=== PATIENT | female | born 1965 | race African-American/Black ===

== ENCOUNTER 2016-06-30 11:54 | Emergency (ER) | payer SELFPAY ==
[~2016-06-30] VITALS: Ht 157.5 cm; Wt 80.0 kg
[~2016-06-30 11:54] MED LIST: AMLO5 PO; FERR140T PO; PROT40TA PO
[2016-06-30 11:56] VITALS: BP 190/91; PULSE 88; RESP 16; TEMP 98; O2SAT 98
[2016-06-30 14:00] VITALS: BP 179/94
--- NOTE | 2016-06-30 14:02 | RADRPT ---
EXAM DATE/TIME: 06/30/2016 13:56 [facility] COMPARISON: CHEST SINGLE AP, November 17, 2015, 4:41. INDICATIONS : Patient woke up yesterday with pain on her left chest area near breast and radiated down left arm enoch ing it numb at times. MEDICAL HISTORY : None. SURGICAL HISTORY : None. ENCOUNTER: Initial ACUITY: 2 days PAIN SCORE: 10/10 LOCATION: Left chest FINDINGS: A single view of the chest demonstrates the lungs to be symmetrically aerated without evidence of mas s, infiltrate or effusion. The cardiomediastinal contours are unremarkable. Osseous structures are intact. CONCLUSION: No acute cardiopulmonary process. Luke Montemayor MD on June 30, 2016 at 13:59 Board Certified Radiologist. This report was verified electronically.
--- NOTE | 2016-06-30 15:29 | PD ---
HPI Chief Complaint: Chest Pain Time Seen by Provider: 15:28 Travel History International Travel<30 days: No Contact w/Intl Traveler<30days: No Traveled to known affect area: No History of Present Illness HPI 51-year-old female came to the emergency room with history of chest pain, left- sided neck pain and neck stiffness. Patient says this has been going on since yesterday but this morning was really worse where she was unable to move her neck. However the pain did radiate down to her chest as well. She is not sure which started first but she definitely is worried about her chest pain as well. Patient was quite hypertensive in triage. She says she has history of hypertension but takes natural stuff to keep her blood pressure down. She also smokes cigarettes and says she has cut down to one pack per day. No history of shortness of breath, fever, cough. Patient had a stress test done 4-5 years ago. There is family history of coronary artery disease in both sides of her family. PFS Past Medical History Narrative Medical List of her past medical, surgical, social and family history was reviewed from the nursing note. Anemia: Yes (WITH BLOOD TRANSFUSION) Asthma: Yes (As a kid.) Blood Disorders: No Anxiety: No Depression: Yes Heart Rhythm Problems: No Cancer: No Cardiac Catheterization: No Cardiovascular Problems: Yes (HTN) High Cholesterol: No Chemotherapy: No Chest Pain: No Congestive Heart Failure: No COPD: No Diabetes: No Diminished Hearing: No Endocrine: No Gastrointestinal Disorders: Yes GERD: Yes Genitourinary: Yes Hypertension: Yes Immune Disorder: No Implanted Vascular Access Dvce: No Kidney Stones: Yes (Took meds.) Neurologic: Yes Psychiatric: Yes Respiratory: Yes Migraines: Yes (As a kid.) Radiation Therapy: No Sleep Apnea: No Thyroid Disease: No ?: Not : 2 Para: 2 Miscarriage: 0 : 0 Tubal Ligation: Yes Past Surgical History Abdominal Surgery: Yes (tubal ligation) Cardiac Surgery: No Cholecystectomy: Yes Coronary Artery Bypass Graft: No Ear Surgery: No Endocrine Surgery: No Eye Surgery: No Genitourinary Surgery: No Gynecologic Surgery: Yes Oral Surgery: No Thoracic Surgery: No Other Surgery: Yes (tubal and gallstones in the 1980s) Family History Narrative Family History Both maternal and paternal side. Family Myocardial Infarction: Yes Social History Alcohol Use: Yes (SELDOM) Tobacco Use: Yes (5 CIG PER DAY) Substance Use: No Allergies-Medications (Allergen,Severity, Reaction): Coded Allergies: Lisinopril (Verified Allergy, Unknown, SWELLING, 06/30/16) Comments List of her allergies reviewed from the nursing note. Reported Meds & Prescriptions Reported Meds & Active Scripts Active Atenolol 25 Mg Tab 12.5 Mg PO BID Narrative Medication List of her home medications reviewed from the nursing note. Review of Systems Except as stated in HPI: all other systems reviewed are Neg Physical Exam Narrative GENERAL: Awake, alert, moderate distress SKIN: Warm and dry. HEAD: Atraumatic. Normocephalic. EYES: Pupils equal and round. No scleral icterus. No injection or drainage. ENT: No nasal bleeding or discharge. Mucous membranes pink and moist. NECK: Trachea midline. No JVD. CARDIOVASCULAR: Regular rate and rhythm. No murmur appreciated. RESPIRATORY: No accessory muscle use. Clear to auscultation. Breath sounds equal bilaterally. GASTROINTESTINAL: Abdomen soft, non-tender, nondistended. Hepatic and splenic margins not palpable. MUSCULOSKELETAL: No obvious deformities. No clubbing. No cyanosis. No edema. Left paraspinal spasm and torticollis. NEUROLOGICAL: Awake and alert. No obvious cranial nerve deficits. Motor grossly within normal limits. Normal speech. PSYCHIATRIC: Appropriate mood and affect; insight and judgment normal. Data Data Last Documented VS Orders Electrocardiogram (06/30/16 13:00) Complete Blood Count With Diff (06/30/16 13:00) Basic Metabolic Panel (Bmp) (06/30/16 13:00) Ckmb (Isoenzyme) Profile (06/30/16 13:00) Troponin I (06/30/16 13:00) Chest, Single Ap (06/30/16 13:00) Ct Cerv Spine W/O Contrast (06/30/16 ) Morphine Inj (Morphine Inj) (06/30/16 16:00) Ketorolac Inj (Toradol Inj) (06/30/16 16:00) Lorazepam Inj (Ativan Inj) (06/30/16 16:00) CKMB (06/30/16 15:45) CKMB% (06/30/16 15:45) Potassium Chloride Eff (K-Lyte Cl Eff) (06/30/16 17:30) Labs [facility] Medical Decision Making Medical Screen Exam Complete: Yes Emergency Medical Condition: Yes Medical Record Reviewed: Yes Interpretation(s) Twelve-lead EKG was reviewed by me. Differential Diagnosis Cervical radiculopathy, ACS Narrative Course 5:38 PM patient was given pain medication and muscle relaxant. A scan of her cervical spine was read as spondylolysis. Blood test results of back and potassium is low. I have ordered replacement. I went back to reassess her and patient says that her neck feels much better but her chest pain is still there and she knows that something is wrong. Patient does have significant risk factor. Given that her physical findings were pronounced for cervical radiculopathy given her risk factor of uncontrolled hypertension, prolonged nicotine abuse history and family history and her age I'm concerned about ACS. I would like to admit this patient to the chest pain center to be ruled out. I mentioned that to the patient. However patient wants to go home because she has to go to work tomorrow. She understands the risks of leaving including a massive heart attack. Patient understands this risk. She is in full capacity to make decisions for herself. She promises that she will follow up with her primary care and quit smoking. She will sign out AGAINST MEDICAL ADVICE however. Procedures EKG Prior to Arrival: Yes Diagnosis Primary Impression: Chest wall pain Additional Impression: Torticollis Scripts Atenolol 25 Mg Tab12.5 Mg PO BID #60 TAB Ref 0 Prov:Josefa Kelly MD 06/30/16 Disposition: 07 AGAINST MEDICAL ADVICE Josefa Kelly MD Jun 30, 2016 15:29 Monocytes (%) (Auto) 8.0 % Eosinophils (%) (Auto) 0.9 % Basophils (%) (Auto) 0.8 % Neutrophils # (Auto) 6.7 TH/MM3 Lymphocytes # (Auto) 1.8 TH/MM3 Monocytes # (Auto) 0.8 TH/MM3 Eosinophils # (Auto) 0.1 TH/MM3 Basophils # (Auto) 0.1 TH/MM3 CBC Comment AUTO DIFF Differential Comment AUTO DIFF CONFIRMED Platelet Estimate HIGH Platelet Morphology Comment NORMAL Tear Drop Cells 1+ Ovalocytes 1+ Keratocytes OCC Sodium Level 140 MEQ/L Potassium Level 3.1 MEQ/L Chloride Level 106 MEQ/L Carbon Dioxide Level 25.9 MEQ/L Anion Gap 8 MEQ/L Blood Urea Nitrogen 9 MG/DL Creatinine 0.71 MG/DL Estimat Glomerular Filtration 105 ML/MIN Rate Random Glucose 149 MG/DL Calcium Level 9.0 MG/DL Total Creatine Kinase 113 U/L Creatine Kinase MB LESS THAN 0.5 NG/ML Troponin I LESS THAN 0.02 NG/ML MDM Medical Decision Making Medical Screen Exam Complete: Yes Emergency Medical Condition: Yes Medical Record Reviewed: Yes Interpretation(s) Twelve-lead EKG was reviewed by me. Differential Diagnosis Cervical radiculopathy, ACS Narrative Course 5:38 PM patient was given pain medication and muscle relaxant. A scan of her cervical spine was read as spondylolysis. Blood test results of back and potassium is low. I have ordered replacement. I went back to reassess her and patient says that her neck feels much better but her chest pain is still there and she knows that something is wrong. Patient does have significant risk factor. Given that her physical findings were pronounced for cervical radiculopathy given her risk factor of uncontrolled hypertension, prolonged nicotine abuse history and family history and her age I'm concerned about ACS. I would like to admit this patient to the chest pain center to be ruled out. I mentioned that to the patient. However patient wants to go home because she has to go to work tomorrow. She understands the risks of leaving including a massive heart attack. Patient understands this risk. She is in full capacity to make decisions for herself. She promises that she will follow up with her primary care and quit smoking. She will sign out AGAINST MEDICAL ADVICE however. Procedures EKG Prior to Arrival: Yes Diagnosis Primary Impression: Chest wall pain Additional Impression: Torticollis Scripts Atenolol 25 Mg Tab12.5 Mg PO BID #60 TAB Ref 0 Prov:Josefa Kelly MD 06/30/16 Disposition: 07 AGAINST MEDICAL ADVICE Josefa Kelly MD Jun 30, 2016 15:29
[2016-06-30 15:30] VITALS: BP 178/83; PULSE 78; RESP 16; O2SAT 98
[2016-06-30 15:57] LABS: AUTOMATED NEUTROPHIL # 6.7 TH/MM3 (1.8-7.7); BASOPHIL # 0.1 TH/MM3 (0-0.2); BASOPHIL % 0.8 % (0.0-2.0); EOSINOPHIL # 0.1 TH/MM3 (0-0.4); EOSINOPHIL % 0.9 % (0.0-4.0); HEMATOCRIT 26.4 % (35.0-46.0); LYMPH % 19.5 % (9.0-44.0); LYMPHOCYTE # 1.8 TH/MM3 (1.0-4.8); MEAN CELL VOLUME 68.5 FL (80.0-100.0); MEAN CORPUSCULAR HGB CONC 30.6 % (32.0-36.0); NEUT % 70.8 % (16.0-70.0); PLATELET COUNT 446 TH/MM3 (150-450); RED BLOOD COUNT 3.85 MIL/MM3 (4.00-5.30); RED CELL DISTRIBUTION WIDTH 18.4 % (11.6-17.2); WHITE BLOOD COUNT 9.5 TH/MM3 (4.0-11.0)
[2016-06-30] MEDS ORDERED: KETOROLAC TROMETHAMINE 30 MG/ML (IVP) VIAL IV PUSH ONE (16:00)
[2016-06-30] MEDS ORDERED: LORazepam 2 MG/ML VIAL IV PUSH ONE (16:00)
[2016-06-30] MEDS ORDERED: MORPHINE SULFATE 4 MG/ML INJ IV PUSH ONE (16:00)
[2016-06-30 16:06] LABS: HEMO FLAGS AUTO DIFF
[2016-06-30 16:18] LABS: ANION GAP 8 MEQ/L (5-15); BICARBONATE 25.9 MEQ/L (21.0-32.0); BLOOD UREA NITROGEN 9 MG/DL (7-18); CHLORIDE 106 MEQ/L (98-107); GLOMERULAR FILTRATION RATE 105 ML/MIN (>89); POTASSIUM 3.1 MEQ/L (3.5-5.1); SODIUM (NA) 140 MEQ/L (136-145)
[2016-06-30 16:22] LABS: CREATINE KINASE 113 U/L (26-192)
[2016-06-30 16:34] LABS: CKMB LESS THAN 0.5 NG/ML (0.5-3.6)
--- NOTE | 2016-06-30 17:02 | RADRPT ---
EXAM DATE/TIME: 06/30/2016 16:01 [facility] COMPARISON: No previous studies available for comparison. INDICATIONS : Left-sided arm and neck pain. RADIATION DOSE: 19.97 CTDIvol (mGy) MEDICAL HISTORY : Hypertension. SURGICAL HISTORY : Tubal ligation. ENCOUNTER: Initial ACUITY: 2 days PAIN SCALE: 7/10 LOCATION: Left neck TECHNIQUE: Volumetric scanning of the cervical spine was performed. Multiplanar reconstructions in the sagittal, coronal and oblique axial planes were performed. Using automated exposure control and adjustment o f the mA and/or kV according to patient size, radiation dose was kept as low as reasonably achievable to obtain optimal diagnostic quality images. FINDINGS: Mild cervical spondylosis is noted at C4-5 and C5-6. There is no acute compression fracture or prever tebral soft tissue swelling. No bony spinal canal stenosis is noted. The bony relationship and alignm ent between C1 and C2 is well-maintained. Scattered apical bullous changes are noted. C2-C3: The bony spinal canal is normal in size. No evidence of disc bulge or herniation. The neural forami na are bilaterally patent. C3-C4: The bony spinal canal is normal in size. No evidence of disc bulge or herniation. The neural forami na are bilaterally patent. C4-C5: The bony spinal canal is normal in size. No evidence of disc bulge or herniation. The neural forami na are bilaterally patent. C5-C6: The bony spinal canal is normal in size. No evidence of disc bulge or herniation. The neural forami na are bilaterally patent. C6-C7: The bony spinal canal is normal in size. No evidence of disc bulge or herniation. The neural forami na are bilaterally patent. C7-T1: The bony spinal canal is normal in size. No evidence of disc bulge or herniation. The neural forami na are bilaterally patent. CONCLUSION: 1. No acute fracture or prevertebral soft tissue swelling. 2. Mild cervical spondylosis at C4-5 and C5-6. 3. Scattered apical bullous changes. Maurisio Drummond MD on June 30, 2016 at 16:57 Board Certified Radiologist. This report was verified electronically.
[2016-06-30 17:11] LABS: KERATOCYTES OCC (NORMAL); OVALOCYTES 1+ (NORMAL); PLATELET ESTIMATE SMEAR HIGH (NORMAL); PLATELET MORPHOLOGY NORMAL (NORMAL); SCAN/DIFF AUTO DIFF CONFIRMED; TEARDROP RBCS 1+ (NORMAL)
[2016-06-30] MEDS ORDERED: POTASSIUM CHLORIDE 25 MEQ EFFERVESCENT TAB PO ONE (17:30)
[2016-06-30] MEDS ORDERED: ATEN25TA PO (17:48)
--- NOTE | 2016-07-02 11:22 | EKG ---
Date Performed: 06/30/2016 Time Performed: 13:11:05 PTAGE: 51 years EKG: Sinus rhythm POSSIBLE LEFT ATRIAL ENLARGEMENT NONSPECIFIC T-WAVE ABNORMALITY BORDERLINE ECG PREVIOUS TRACING : 06/30/2016 13.09 DOCTOR: Nic Chou Interpretating Date/Time 07/02/2016 11:19:48
== END 2016-06-30 18:27 | disposition left against medical advice (07) ==
LOC: NEPC 11:54
DX: R07.89 Other chest pain (principal); M43.6 Torticollis; I10 Essential (primary) hypertension; F17.210 Nicotine dependence, cigarettes, uncomplicated
CPT/HCPCS: 71010; 72125; 80048; 82550; 82552; 84484; 85025; 93005; 96374; 96375; 99285; J1885; J2060; J2270

== ENCOUNTER 2016-08-29 15:29 | Emergency (ER) | payer SELFPAY ==
[~2016-08-29 15:29] MED LIST changes: -AMLO5 PO; +ATEN25TA PO; -FERR140T PO; -PROT40TA PO
[2016-08-29 15:30] VITALS: BP 141/91; PULSE 98; RESP 16; TEMP 98.2; O2SAT 98
--- NOTE | 2016-08-29 16:23 | PD ---
Physical Exam Date Seen by Provider: August 29, 2016 Time Seen by Provider: 16:18 Narrative 51 y/o female with sudden onset left sciatic pain and nubness to left foot. Patient woke up with it yesterday Am with it. patient is able to walk, but states Left leg feels weak. Pain radiates from left lower back/buttock to the foot. Worse with ambulation, cough or sneeze. Patient denies bowel or Bladder symptoms. No Saddle numbness. Pain is 9/10. V/S Stable Awaiting Bed Placement. Data Data Last Documented VS Vital Signs Date Time Temp Pulse Resp B/P Pulse Ox O2 Delivery O2 Flow Rate FiO2 08/29/16 15:30 98.2 98 16 141/91 98 MDM Medical Record Reviewed: Yes Supervised Visit with SELVIN: Yes Condition: Stable Alex Damon August 29, 2016 16:23
[2016-08-29] MEDS ORDERED: LORazepam 2 MG/ML VIAL IV PUSH ONE (17:30)
[2016-08-29] MEDS ORDERED: MORPHINE SULFATE 4 MG/ML INJ IV PUSH ONE (17:30)
[2016-08-29] MEDS ORDERED: DEXAMETHASONE SOD PHOS 20 MG/5 ML VIAL IV PUSH ONE (17:30)
--- NOTE | 2016-08-29 17:52 | RADRPT ---
EXAM DATE/TIME: 08/29/2016 17:37 [facility] COMPARISON: No previous studies available for comparison. INDICATIONS : Lower back pain irradiating down to foot from unknown injury. MEDICAL HISTORY : None. SURGICAL HISTORY : Tubal ligation. ENCOUNTER: Initial ACUITY: 1 day PAIN SCORE: 10/10 LOCATION: Left lower back. FINDINGS: Two view examination was performed. There are five non-rib bearing vertebral bodies. The vertebral bodies are in normal alignment without evidence of subluxation or scoliosis. There is mild disc space narrowing at the L3-4 level with slight hypertrophic change. The pedicles are intact. Bony minerali zation is normal. No fracture is identified. The patient is status post cholecystectomy with surgica l clips in the right upper quadrant. There is a minimal scoliosis. CONCLUSION: 1. Degenerative disc change at the L3-4 level. 2. Minimal scoliosis. Ricardo Smallwood MD on August 29, 2016 at 17:49 Board Certified Radiologist. This report was verified electronically.
[2016-08-29] MEDS ORDERED: NORC5TAB PO (18:05)
[2016-08-29] MEDS ORDERED: CYCL1TAB29 PO (18:05)
[2016-08-29] MEDS ORDERED: IBUP800T23 PO (18:05)
--- NOTE | 2016-08-29 18:05 | PD ---
HPI . Back and left leg pain Chief Complaint: Pain: Acute or Chronic Time Seen by Provider: 17:26 Travel History International Travel<30 days: No Contact w/Intl Traveler<30days: No Traveled to known affect area: No History of Present Illness HPI Patient presents with the acute onset of back and left leg pain. It started yesterday. It has been consistent she rates it as 9/10. Pain is exacerbated with sitting and standing. She also reports exacerbation with coughing and sneezing. No previous similar history or any recent trauma. She denies any fever or history of IV drug abuse. She denies any saddle anesthesia. She denies any bowel or bladder incontinence. PFSH Past Medical History Anemia: Yes (WITH BLOOD TRANSFUSION) Asthma: Yes (As a kid.) Blood Disorders: No Anxiety: No Depression: Yes Heart Rhythm Problems: No Cancer: No Cardiac Catheterization: No Cardiovascular Problems: Yes (HTN) High Cholesterol: No Chemotherapy: No Chest Pain: No Congestive Heart Failure: No COPD: No Diabetes: No Diminished Hearing: No Endocrine: No Gastrointestinal Disorders: Yes GERD: Yes Genitourinary: Yes Hypertension: Yes Immune Disorder: No Implanted Vascular Access Dvce: No Kidney Stones: Yes (Took meds.) Neurologic: Yes Psychiatric: Yes Respiratory: Yes Immunizations Current: Yes Migraines: Yes (As a kid.) Radiation Therapy: No Sleep Apnea: No Thyroid Disease: No ?: Not : 2 Para: 2 Miscarriage: 0 : 0 Tubal Ligation: Yes Past Surgical History Abdominal Surgery: Yes (tubal ligation) Cardiac Surgery: No Cholecystectomy: Yes Coronary Artery Bypass Graft: No Ear Surgery: No Endocrine Surgery: No Eye Surgery: No Genitourinary Surgery: No Gynecologic Surgery: Yes Oral Surgery: No Thoracic Surgery: No Other Surgery: Yes (tubal and gallstones in the 1980s) Social History Alcohol Use: Yes (SELDOM) Tobacco Use: Yes (5 CIG PER DAY) Substance Use: No Allergies-Medications (Allergen,Severity, Reaction): Coded Allergies: Lisinopril (Verified Allergy, Unknown, SWELLING, 08/29/16) Reported Meds & Prescriptions Reported Meds & Active Scripts Active Atenolol 25 Mg Tab 12.5 Mg PO BID Review of Systems Except as stated in HPI: all other systems reviewed are Neg General / Constitutional: No: Fever, Chills Genitourinary: No: Incontinence Musculoskeletal: Positive: Pain (low back and left leg pain) Neurologic: Positive: Weakness, Paresthesia, No: Headache, Incontinence Physical Exam Narrative GENERAL: Awake and alert and in no acute distress. SKIN: Warm and dry. HEAD: Atraumatic. Normocephalic. EYES: Pupils equal and round. NECK: Trachea midline. CARDIOVASCULAR: Regular rate and rhythm. RESPIRATORY: No accessory muscle use. MUSCULOSKELETAL: No obvious deformities. No edema. Tender in the low back. NEUROLOGICAL: Awake and alert. No obvious cranial nerve deficits. Motor grossly within normal limits. Normal speech. PSYCHIATRIC: Appropriate mood and affect; insight and judgment normal. Data Data Last Documented VS Vital Signs Date Time Temp Pulse Resp B/P Pulse Ox O2 Delivery O2 Flow Rate FiO2 08/29/16 15:30 98.2 98 16 141/91 98 Orders ^ Saline Lock (08/29/16 17:26) Dexamethasone Inj (Decadron Inj) (08/29/16 17:30) Morphine Inj (Morphine Inj) (08/29/16 17:30) Lorazepam Inj (Ativan Inj) (08/29/16 17:30) Spine, Lumbar - Ltd (Ap & Lat) (08/29/16 17:28) MDM Medical Decision Making Medical Screen Exam Complete: Yes Emergency Medical Condition: Yes Differential Diagnosis Differential diagnosis includes but is not limited to muscular low back pain, DDD, spinal stenosis, epidural abscess, sciatica, kidney infection or stone. Narrative Course Patient presents with sciatica. She does not have any concerning signs or symptoms such as fever, incontinence, saddle anesthesia or history of IV drug abuse. Last Impressions Lumbar Spine X-Ray 08/29/16 0604 Signed Impressions: Service Date/Time: Monday, August 29, 2016 17:37 - CONCLUSION: 1. Degenerative disc change at the L3-4 level. 2. Minimal scoliosis. Ricardo Smallwood MD She has been treated in the emergency department with Decadron, morphine and Ativan. She will be discharged on ibuprofen, hydrocodone and Flexeril. She will be instructed to follow-up with her primary care physician. Diagnosis Primary Impression: Sciatica Qualified Code: M54.32 - Sciatica of left side Patient Instructions: General Instructions, Sciatica (DC) Additional Instructions: See your doctor for ongoing care. Med/Other Pt SpecificInfo: Prescription(s) given Scripts Cyclobenzaprine (Flexeril)10 Mg Tab10 Mg PO TID #30 TAB Ref 0 Prov:Diamond Mobley MD 08/29/16 Hydrocodone-Acetaminophen ([place])5-325 mg Tab1 Tab PO Q4H PRN (PAIN) #12 TAB Ref 0 Prov:Diamond Mobley MD 08/29/16 Ibuprofen 800 Mg [id number] Mg PO Q8H PRN (Pain/Inflammation) #60 TAB Ref 0 Prov:Diamond Mobley MD 08/29/16 Disposition: 01 DISCHARGE HOME Condition: Stable Diamond Mobley MD August 29, 2016 18:05
[2016-08-29 18:09] VITALS: BP 132/79
== END 2016-08-29 18:50 | disposition home or self-care (01) ==
LOC: NEPD 15:29
DX: M54.32 Sciatica, left side (principal); I10 Essential (primary) hypertension; Z72.0 Tobacco use; Z86.2 Personal history of diseases of the blood and blood-forming organs and certain disorders involving the immune mechanism; Z86.59 Personal history of other mental and behavioral disorders; Z86.79 Personal history of other diseases of the circulatory system; Z87.19 Personal history of other diseases of the digestive system; Z87.448 Personal history of other diseases of urinary system; Z86.69 Personal history of other diseases of the nervous system and sense organs
CPT/HCPCS: 72100; 96374; 96375; 99284; J1100; J2060; J2270

== ENCOUNTER 2016-08-31 09:49 | Emergency (ER) | payer SELFPAY ==
[~2016-08-31] VITALS: Ht 157.5 cm; Wt 81.5 kg
[~2016-08-31 09:49] MED LIST changes: +CYCL1TAB29 PO; +IBUP800T23 PO; +NORC5TAB PO
[2016-08-31 09:51] VITALS: BP 150/110; PULSE 94; RESP 20; TEMP 98.9; O2SAT 100
--- NOTE | 2016-08-31 10:02 | PD ---
HPI . sciatica Chief Complaint: Pain: Acute or Chronic Time Seen by Provider: 10:01 Travel History International Travel<30 days: No Contact w/Intl Traveler<30days: No Traveled to known affect area: No History of Present Illness HPI 51-year-old female who was previously seen on Monday for sciatica here requesting stronger pain medications. Patient was seen by emergency room physician here at the hospital on Monday and was given pain medications for her sciatica. She tells me that it is not working and she was hoping she could get something stronger. She was advised to follow-up the primary care provider, which she does not have at this moment. She is tearful because she doesn't know where to go to get her workup. PFSH Past Medical History Anemia: Yes (WITH BLOOD TRANSFUSION) Asthma: Yes (As a kid.) Blood Disorders: No Anxiety: No Depression: Yes Heart Rhythm Problems: No Cancer: No Cardiac Catheterization: No Cardiovascular Problems: Yes (HTN) High Cholesterol: No Chemotherapy: No Chest Pain: No Congestive Heart Failure: No COPD: No Diabetes: No Diminished Hearing: No Endocrine: No Gastrointestinal Disorders: Yes GERD: Yes Genitourinary: Yes Heparin Induced Thrombocytopen: No Hypertension: Yes Immune Disorder: No Implanted Vascular Access Dvce: No Kidney Stones: Yes (Took meds.) Neurologic: Yes Psychiatric: Yes Respiratory: Yes Immunizations Current: Yes Migraines: Yes (As a kid.) Radiation Therapy: No Sleep Apnea: No Thyroid Disease: No ?: Not : 2 Para: 2 Miscarriage: 0 : 0 Tubal Ligation: Yes Past Surgical History Abdominal Surgery: Yes (tubal ligation) Cardiac Surgery: No Cholecystectomy: Yes Coronary Artery Bypass Graft: No Ear Surgery: No Endocrine Surgery: No Eye Surgery: No Genitourinary Surgery: No Gynecologic Surgery: Yes Neurologic Surgery: No Oral Surgery: No Thoracic Surgery: No Other Surgery: Yes (tubal and gallstones in the 1980s) Social History Alcohol Use: Yes (SELDOM) Tobacco Use: Yes (5 CIG PER DAY) Substance Use: No Allergies-Medications (Allergen,Severity, Reaction): Coded Allergies: Lisinopril (Verified Allergy, Unknown, SWELLING, 08/29/16) Reported Meds & Prescriptions Reported Meds & Active Scripts Active Flexeril (Cyclobenzaprine HCl) 10 Mg Tab 10 Mg PO TID Ava (Hydrocodone-Acetaminophen) 5-325 mg Tab 1 Tab PO Q4H PRN Ibuprofen 800 Mg Tab 800 Mg PO Q8H PRN Atenolol 25 Mg Tab 12.5 Mg PO BID Review of Systems General / Constitutional: No: Fever Eyes: No: Visual changes HENT: No: Headaches Cardiovascular: No: Chest Pain or Discomfort Respiratory: No: Shortness of Breath Gastrointestinal: No: Abdominal Pain Genitourinary: No: Dysuria Musculoskeletal: Positive: Other (sciatica), No: Pain Skin: No Rash Neurologic: No: Weakness Psychiatric: No: Depression Endocrine: No: Polydipsia Hematologic/Lymphatic: No: Easy Bruising Physical Exam Narrative GENERAL: AAO x 3, no acute distress, Well-nourished, well-developed patient. SKIN: Warm and dry. No visible rashes or bruising. HEAD: Normocephalic and atraumatic. EYES: No scleral icterus. No injection or drainage. ENT: No nasal drainage noted. Airway patent. NECK: Supple, trachea midline. No JVD. CARDIOVASCULAR: Regular rate and rhythm without murmurs, gallops, or rubs. RESPIRATORY: Breath sounds equal bilaterally. No accessory muscle use. No rhonchi or rales. GASTROINTESTINAL: Visual inspection normal EXTREMITIES: No cyanosis or edema. BACK: Nontender without obvious deformity. PSYCH: AAO x 3, normal affect. Data Data Last Documented VS Vital Signs Date Time Temp Pulse Resp B/P Pulse Ox O2 Delivery O2 Flow Rate FiO2 08/31/16 09:51 98.9 94 20 150/110 100 Room Air MDM Medical Decision Making Medical Screen Exam Complete: Yes Emergency Medical Condition: No Medical Record Reviewed: Yes Differential Diagnosis Sciatica, chronic back pain, less likely cauda equina Narrative Course A medical screening exam was performed: At the time of evaluation the presenting medical condition was determined not to be of an emergent nature. The patient was given the option of receiving additional care, but declined. Patient was given options for additional community resources from which to obtain care. The Patient Has Been advised to seek medical attention for their presenting complaint. The patient has been advised to return to the ER at any time if an emergent condition develops. I explained to patient that she will need to establish with a PCP for further workup and treatment. Diagnosis Primary Impression: Encounter for medical screening examination Condition: Stable Soni Cornejo August 31, 2016 10:01
== END 2016-08-31 10:21 | disposition left against medical advice (07) ==
LOC: NEPK 09:49
DX: M54.30 Sciatica, unspecified side (principal); I10 Essential (primary) hypertension; Z72.0 Tobacco use
CPT/HCPCS: 99281

== ENCOUNTER 2016-10-18 11:46 | Emergency (ER) | payer SELFPAY ==
[~2016-10-18] VITALS: Ht 157.5 cm; Wt 82.0 kg
[2016-10-18 11:47] VITALS: BP 151/96; PULSE 94; RESP 20; TEMP 98.2; O2SAT 100
--- NOTE | 2016-10-18 11:50 | PD ---
Physical Exam Time Seen by Provider: 11:48 Narrative 51 y/o female here with L leg pain for 2 months, previously seen here and dx with sciatica. Symptoms have worsened which prompted reevaluation. Vital signs reviewed. Seen at triage desk. Awaiting bed placement. Data Data Last Documented VS Vital Signs Date Time Temp Pulse Resp B/P Pulse Ox O2 Delivery O2 Flow Rate FiO2 10/18/16 11:47 98.2 94 20 151/96 100 Room Air [facility] Medical Record Reviewed: Yes Supervised Visit with SELVIN: Desmond Ortiz Oct 18, 2016 11:49
--- NOTE | 2016-10-18 12:03 | PD ---
HPI Chief Complaint: Pain: Acute or Chronic Time Seen by Provider: 12:03 Travel History International Travel<30 days: No Contact w/Intl Traveler<30days: No History of Present Illness HPI 51-year-old Afro-[place] female presents to our department with ongoing left sided sciatic symptoms. Patient states she was seen approximately month ago and diagnosed with sciatica treated with ibuprofen, as relaxants, and Lortab. States her symptoms have continued and worsened somewhat since that time. Her pain is now 8 out of 10 worse with right to stand. Patient denies numbness, but does have a sensation of hot water running down the left lateral thigh, and the pain extends down to the pinky toe of the left foot, especially with Valsalva type maneuver. She denies changes in bowel or bladder. She denies specific weakness. She is only limited secondary to pain. She states walking improves her discomfort. She is allergic to lisinopril. PFSH Past Medical History Anemia: Yes (WITH BLOOD TRANSFUSION) Asthma: Yes (As a kid.) Blood Disorders: No Anxiety: No Depression: Yes Heart Rhythm Problems: No Cancer: No Cardiac Catheterization: No Cardiovascular Problems: Yes (HTN) High Cholesterol: No Chemotherapy: No Chest Pain: No Congestive Heart Failure: No COPD: No Diabetes: No Diminished Hearing: No Endocrine: No Gastrointestinal Disorders: Yes GERD: Yes Genitourinary: Yes Heparin Induced Thrombocytopen: No Hypertension: Yes Immune Disorder: No Implanted Vascular Access Dvce: No Kidney Stones: Yes (Took meds.) Neurologic: Yes Psychiatric: Yes Respiratory: Yes Immunizations Current: Yes Migraines: Yes (As a kid.) Radiation Therapy: No Sleep Apnea: No Thyroid Disease: No ?: Not : 2 Para: 2 Miscarriage: 0 : 0 Tubal Ligation: Yes Past Surgical History Abdominal Surgery: Yes (tubal ligation) Cardiac Surgery: No Cholecystectomy: Yes Coronary Artery Bypass Graft: No Ear Surgery: No Endocrine Surgery: No Eye Surgery: No Genitourinary Surgery: No Gynecologic Surgery: Yes Neurologic Surgery: No Oral Surgery: No Thoracic Surgery: No Other Surgery: Yes (tubal and gallstones in the 1980s) Social History Alcohol Use: Yes (SELDOM) Tobacco Use: Yes (5 CIG PER DAY) Substance Use: No Allergies-Medications (Allergen,Severity, Reaction): Coded Allergies: Lisinopril (Verified Allergy, Unknown, SWELLING, 08/29/16) Reported Meds & Prescriptions Reported Meds & Active Scripts Active Flexeril (Cyclobenzaprine HCl) 10 Mg Tab 10 Mg PO TID [place] (Hydrocodone-Acetaminophen) 5-325 mg Tab 1 Tab PO Q4H PRN Ibuprofen 800 Mg Tab 800 Mg PO Q8H PRN Atenolol 25 Mg Tab 12.5 Mg PO BID Review of Systems Except as stated in HPI: all other systems reviewed are Neg General / Constitutional: No: Fever Eyes: No: Visual changes HENT: No: Headaches Cardiovascular: No: Chest Pain or Discomfort Respiratory: No: Shortness of Breath Gastrointestinal: No: Abdominal Pain Genitourinary: No: Dysuria Musculoskeletal: No: Pain Skin: No Rash Neurologic: No: Weakness Psychiatric: No: Depression Endocrine: No: Polydipsia Hematologic/Lymphatic: No: Easy Bruising Physical Exam Narrative GENERAL: Patient appears in moderate distress. She is standing with the left leg guarded. SKIN: Warm and dry. Normal color. Normal turgor. No rash. HEAD: Atraumatic. Normocephalic. EYES: Pupils equal and round. No scleral icterus. No injection or drainage. ENT: No nasal bleeding or discharge. Mucous membranes pink and moist. Pharynx is clear. Airway is patent NECK: Trachea midline. Supple and nontender. CARDIOVASCULAR: Regular rate and rhythm. RESPIRATORY: No accessory muscle use. Clear to auscultation. Breath sounds equal bilaterally. MUSCULOSKELETAL: Extremities without clubbing, cyanosis, or edema. No obvious deformities. Patient is tenderness in the left lower lumbar spine into the sciatic notch. Patient has pain with straight leg raise on the left at 35. She has contralateral straight leg raise pain on the right at 45. Patient is able to stand on the left leg with discomfort. She is able to go up on tippytoe on both legs with discomfort. No other significant findings are noted. NEUROLOGICAL: Awake and alert. No obvious cranial nerve deficits. Motor grossly within normal limits. Five out of 5 muscle strength in the arms and legs. Normal speech. PSYCHIATRIC: Appropriate mood and affect; insight and judgment normal. Data Data Last Documented VS Vital Signs Date Time Temp Pulse Resp B/P Pulse Ox O2 Delivery O2 Flow Rate FiO2 10/18/16 11:47 98.2 94 20 151/96 100 Room Air MDM Medical Decision Making Medical Screen Exam Complete: Yes Emergency Medical Condition: Yes Differential Diagnosis Left-sided sciatica. Low back pain. Possible disc herniation. Narrative Course Patient is medically stable at time of exam. Patient has full strength although limited by pain. Patient is given Toradol 60 mg IM as well as Decadron 10 mg IM. Patient is continued on prednisone 20 mg twice a day 7 days. Patient is given tramadol 50 mg one every 6 hours when necessary pain #20. Patient is given a mandatory referral to Dr. Magana, the neurosurgeon credit operations specialist. Patient is instructed to return to emergency Department with any weakness or changes in bowel or bladder as discussed. Work note is given. Diagnosis Primary Impression: Left-sided low back pain with sciatica Qualified Code: M54.42 - Acute left-sided low back pain with left-sided sciatica Referrals: Shaheen Magana MD Patient Instructions: General Instructions, Sciatica (ED) Departure Forms: Work Release Enter return to work date: Oct 19, 2016 Special Instructions: No prolonged standing for 7 days. Additional Instructions: Patient has full strength although limited by pain. Patient is given Toradol 60 mg IM as well as Decadron 10 mg IM. Patient is continued on prednisone 20 mg twice a day 7 days. Patient is given tramadol 50 mg one every 6 hours when necessary pain #20. Patient is given a mandatory referral to Dr. Magana, the neurosurgeon credit operations specialist. Patient is instructed to return to emergency Department with any weakness or changes in bowel or bladder as discussed. Work note is given. Disposition: 01 DISCHARGE HOME Condition: Stable Alex Damon Oct 18, 2016 12:03
[2016-10-18] MEDS ORDERED: DEXAMETHASONE SOD PHOS 20 MG/5 ML VIAL IM ONE (12:15)
[2016-10-18] MEDS ORDERED: KETOROLAC TROMETHAMINE 60 MG/2 ML (IM) VIAL IM ONE (12:15)
[2016-10-18] MEDS ORDERED: PRED20 PO (12:19)
[2016-10-18] MEDS ORDERED: TRAM50TA PO (12:19)
[2016-10-18] MEDS ORDERED: MULTTAB67 PO (12:25)
== END 2016-10-18 12:33 | disposition home or self-care (01) ==
LOC: NEPK 11:46
DX: M54.42 Lumbago with sciatica, left side (principal)
CPT/HCPCS: 96372; 99284; J1100; J1885

== ENCOUNTER 2016-10-26 08:42 | Emergency (ER) | payer SELFPAY ==
[~2016-10-26] VITALS: Ht 157.5 cm; Wt 82.0 kg
[~2016-10-26 08:42] MED LIST changes: -ATEN25TA PO; -CYCL1TAB29 PO; -IBUP800T23 PO; +MULTTAB67 PO; -NORC5TAB PO; +PRED20 PO; +TRAM50TA PO
[2016-10-26 08:44] VITALS: BP 155/83; PULSE 104; RESP 16; TEMP 98; O2SAT 100
[2016-10-26] MEDS ORDERED: SODIUM CHLOR 0.9% 1000 ML INJ 1,000 ML IV SCH (10:27)
[2016-10-26] MEDS ORDERED: ATROPINE/SCOPOLAM/HYOSCYAM/PB ELIXIR 10 ML CUP PO ONE (10:30)
[2016-10-26] MEDS ORDERED: PANTOPRAZOLE SODIUM 40 MG VIAL IV PUSH ONE (10:30)
[2016-10-26] MEDS ORDERED: ONDANSETRON HCL 4 MG/2 ML VIAL IVP ONE (10:30)
[2016-10-26] MEDS ORDERED: DICYCLOMINE HCL 10 MG CAP PO ONE (10:30)
[2016-10-26] MEDS ORDERED: ALUMINUM/MAGNESIUM/SIMETH 30 ML CUP PO ONE (10:30)
[2016-10-26 10:34] VITALS: RESP 16; O2SAT 98
[2016-10-26 10:41] LABS: AUTOMATED NEUTROPHIL # 4.6 TH/MM3 (1.8-7.7); BASOPHIL % 0.6 % (0.0-2.0); EOSINOPHIL # 0.1 TH/MM3 (0-0.4); EOSINOPHIL % 1.8 % (0.0-4.0); HEMATOCRIT 27.8 % (35.0-46.0); HEMO FLAGS DIFF FINAL; LYMPH % 27.9 % (9.0-44.0); LYMPHOCYTE # 2.2 TH/MM3 (1.0-4.8); MEAN CORPUSCULAR HEMOGLOBIN 21.9 PG (27.0-34.0); MEAN CORPUSCULAR HGB CONC 30.4 % (32.0-36.0); MONO % 12.4 % (0.0-8.0); NEUT % 57.3 % (16.0-70.0); PLATELET COUNT 489 TH/MM3 (150-450); RED BLOOD COUNT 3.86 MIL/MM3 (4.00-5.30); RED CELL DISTRIBUTION WIDTH 22.2 % (11.6-17.2)
--- NOTE | 2016-10-26 10:41 | PD ---
HPI Chief Complaint: GI Complaint Time Seen by Provider: 10:02 Travel History International Travel<30 days: No Contact w/Intl Traveler<30days: No Traveled to known affect area: No History of Present Illness HPI 51-year-old female complains of epigastric abdominal pain with nausea vomiting and dizziness. Patient states the symptoms started yesterday. Patient states the pain is burning pain sharp pain started around the epigastric area with radiation to the back. Patient states that the pains is worse with eating. Patient states that she has been taking a lot of ibuprofen recently for her sciatica pain. Patient was given prescription prednisone recently for sciatic pain also. Patient denies any fever chills. Patient denies any dysuria or frequency. Patient denies any vaginal discharge or bleeding. Patient has history of peptic ulcer disease and anemia. Patient required a blood transfusion in the past with anemia. Patient states that she has heavy menstruation period for the past 2 weeks. PFSH Past Medical History Hx Anticoagulant Therapy: No Anemia: Yes (WITH BLOOD TRANSFUSION) Asthma: Yes (As a kid.) Blood Disorders: No Anxiety: No Depression: Yes Heart Rhythm Problems: No Cancer: No Cardiac Catheterization: No Cardiovascular Problems: No High Cholesterol: No Chemotherapy: No Chest Pain: No Congestive Heart Failure: No COPD: No Cerebrovascular Accident: No Diabetes: No Diminished Hearing: No Endocrine: No Gastrointestinal Disorders: Yes GERD: Yes Genitourinary: Yes Heparin Induced Thrombocytopen: No Hypertension: Yes Immune Disorder: No Implanted Vascular Access Dvce: No Kidney Stones: Yes (Took meds.) Neurologic: Yes Psychiatric: Yes Respiratory: No Immunizations Current: Yes Migraines: Yes (As a kid.) Radiation Therapy: No Sleep Apnea: No Thyroid Disease: No Tetanus Vaccination: > 5 Years Influenza Vaccination: Yes ?: Not LMP: 10/11/16 : 2 Para: 2 Miscarriage: 0 : 0 Tubal Ligation: Yes Past Surgical History Abdominal Surgery: Yes (tubal ligation) Cardiac Surgery: No Cholecystectomy: Yes Coronary Artery Bypass Graft: No Ear Surgery: No Endocrine Surgery: No Eye Surgery: No Genitourinary Surgery: No Gynecologic Surgery: Yes Hysterectomy: No Neurologic Surgery: No Oral Surgery: No Thoracic Surgery: No Other Surgery: Yes (tubal and gallstones in the 1980s) Family History Family Myocardial Infarction: Yes (GM/COUSIN/AUNTS/UNCLE) Social History Alcohol Use: Yes (SELDOM) Tobacco Use: No Substance Use: No (pt denies ) Allergies-Medications (Allergen,Severity, Reaction): Coded Allergies: Lisinopril (Verified Allergy, Severe, SWELLING, 10/26/16) Reported Meds & Prescriptions Reported Meds & Active Scripts Active Carafate (Sucralfate) 1 Gm Tab 1 Gm PO QID On empty stomach Protonix (Pantoprazole Sodium) 20 Mg Tab 20 Mg PO DAILY [place] (Hydrocodone-Acetaminophen) 5-325 mg Tab 1 Tab PO Q6H PRN Reported Multiple Vitamin 1 Tab 1 Tab PO DAILY Review of Systems General / Constitutional: No: Fever Eyes: No: Visual changes HENT: No: Headaches Cardiovascular: No: Chest Pain or Discomfort Respiratory: No: Shortness of Breath Gastrointestinal: Positive: Nausea, Vomiting, Abdominal Pain Genitourinary: No: Dysuria Musculoskeletal: No: Pain Skin: No Rash Neurologic: No: Weakness Psychiatric: No: Depression Endocrine: No: Polydipsia Hematologic/Lymphatic: No: Easy Bruising Physical Exam Narrative GENERAL: Well-nourished, well-developed patient. SKIN: Focused skin assessment warm/dry. HEAD: Normocephalic. EYES: No scleral icterus. No injection or drainage. NECK: Supple, trachea midline. No JVD or lymphadenopathy. CARDIOVASCULAR: Regular rate and rhythm without murmurs, gallops, or rubs. RESPIRATORY: Breath sounds equal bilaterally. No accessory muscle use. GASTROINTESTINAL: Abdomen soft, nondistended. Patient has moderate tenderness on palpation epigastric area. No rebound tenderness. No mass. MUSCULOSKELETAL: No cyanosis, or edema. BACK: Nontender without obvious deformity. No CVA tenderness. Neurologic exam normal. Data Data Last Documented VS Vital Signs Date Time Temp Pulse Resp B/P Pulse Ox O2 Delivery O2 Flow Rate FiO2 10/26/16 13:12 97.8 78 16 130/77 99 10/26/16 10:34 Room Air Orders Complete Blood Count With Diff (10/26/16 10:27) Comprehensive Metabolic Panel (10/26/16 10:27) Lipase (10/26/16 10:27) Prothrombin Time / Inr (Pt) (10/26/16 10:27) Act Partial Throm Time (Ptt) (10/26/16 10:27) Urinalysis - C+S If Indicated (10/26/16 10:27) Iv Access Insert/Monitor (10/26/16 10:27) Ecg Monitoring (10/26/16 10:27) Oximetry (10/26/16 10:27) Ondansetron Inj (Zofran Inj) (10/26/16 10:30) Sodium Chlor 0.9% 1000 Ml Inj (Ns 1000 M (10/26/16 10:27) Dicyclomine (Bentyl) (10/26/16 10:30) Pantoprazole Inj (Protonix Inj) (10/26/16 10:30) Al-Mag Hy-Si 40-40-4 Mg/Ml Liq (Mag-Al P (10/26/16 10:30) Zseia-Lefzbt-Nikydo-Pb Liq ( Liq (10/26/16 10:30) Morphine Inj (Morphine Inj) (10/26/16 12:30) Labs Laboratory Tests Test 10/26/16 10/26/16 10:30 11:19 White Blood Count 8.0 TH/MM3 Red Blood Count 3.86 MIL/MM3 Hemoglobin 8.4 GM/DL Hematocrit 27.8 % Mean Corpuscular Volume 72.0 FL Mean Corpuscular Hemoglobin 21.9 PG Mean Corpuscular Hemoglobin 30.4 % Concent Red Cell Distribution Width 22.2 % Platelet Count 489 TH/MM3 Mean Platelet Volume 6.8 FL Neutrophils (%) (Auto) 57.3 % Lymphocytes (%) (Auto) 27.9 % Monocytes (%) (Auto) 12.4 % Eosinophils (%) (Auto) 1.8 % Basophils (%) (Auto) 0.6 % Neutrophils # (Auto) 4.6 TH/MM3 Lymphocytes # (Auto) 2.2 TH/MM3 Monocytes # (Auto) 1.0 TH/MM3 Eosinophils # (Auto) 0.1 TH/MM3 Basophils # (Auto) 0.0 TH/MM3 CBC Comment DIFF FINAL Differential Comment Prothrombin Time 10.6 SEC Prothromb Time International 1.0 RATIO Ratio Activated Partial 23.7 SEC Thromboplast Time Urine Color LIGHT-YELLOW Urine Turbidity HAZY Urine pH 6.5 Urine Specific [place] 1.005 Urine Protein NEG mg/dL Urine Glucose (UA) NEG mg/dL Urine Ketones NEG mg/dL Urine Occult Blood NEG Urine Nitrite NEG Urine Bilirubin NEG Urine Urobilinogen LESS THAN 2.0 MG/DL Urine Leukocyte Esterase NEG Urine RBC LESS THAN 1 /hpf Urine WBC 2 /hpf Urine Squamous Epithelial 7 /hpf Cells Urine Amorphous Sediment FEW Urine Bacteria OCC /hpf Microscopic Urinalysis Comment CULT NOT INDICATED Sodium Level 140 MEQ/L Potassium Level 3.6 MEQ/L Chloride Level 108 MEQ/L Carbon Dioxide Level 26.9 MEQ/L Anion Gap 5 MEQ/L Blood Urea Nitrogen 8 MG/DL Creatinine 0.53 MG/DL Estimat Glomerular Filtration 148 ML/MIN Rate Random Glucose 107 MG/DL Calcium Level 8.1 MG/DL Total Bilirubin 0.3 MG/DL Aspartate Amino Transf 85 U/L (AST/SGOT) Alanine Aminotransferase 24 U/L (ALT/SGPT) Alkaline Phosphatase 80 U/L Total Protein 7.9 GM/DL Albumin 2.9 GM/DL Lipase 158 U/L [facility] Medical Decision Making Medical Screen Exam Complete: Yes Emergency Medical Condition: Yes Interpretation(s) 11:16 AM. CBC WBC 8.0 hemoglobin 8.4 hematocrit 27.8. MCV 72. Platelets 489. Normal differential. 12:15 PM. CMP within normal limit. UA is negative. Differential Diagnosis Differential diagnosis including gastritis, PUD, pancreatitis, cholecystitis, colitis, UTI, pyelonephritis, nephrolithiasis. Narrative Course 51-year-old female with epigastric abdominal pain. History of ulcer disease. Normal saline solution 1 25 cc an hour. Protonix 40 mg IV. Maalox 30 cc by mouth. 10 cc by mouth. Morphine 2 mg IV given. Diagnosis Primary Impression: Gastritis Qualified Code: K29.00 - Acute gastritis without hemorrhage, unspecified gastritis type Patient Instructions: General Instructions Additional Instructions: Take medications as directed. Follow-up with personal physician GI specialist. Return if worse. Advised patient to avoid NSAIDs Med/Other Pt SpecificInfo: Prescription(s) given Scripts Sucralfate (Carafate)1 Gm Tab1 Gm PO QID #120 TAB Ref 0 On empty stomach Prov:Phil Mclain MD 10/26/16 Pantoprazole (Protonix)20 Mg Tab20 Mg PO DAILY #30 TAB Ref 0 Prov:Phil Mclain MD 10/26/16 Hydrocodone-Acetaminophen (Trion)5-325 mg Tab1 Tab PO Q6H PRN (PAIN) #30 TAB Prov:Phil Mclain MD 10/26/16 Disposition: 01 DISCHARGE HOME Condition: Stable Phil Mclain MD Oct 26, 2016 10:41
[2016-10-26 10:46] LABS: BACTERIA, URINE OCC /hpf; BLOOD, URINE NEG (NEG); COMMENT (UR) CULT NOT INDICATED; CULTURE IF INDICATED CULT NOT INDICATED; GLUCOSE,URINE NEG (NEG); KETONE, URINE NEG (NEG); NITRITE,URINE NEG (NEG); PH, URINE 6.5 (5.0-8.5); SQUAMOUS EPITHELIAL CELL URINE 7 /hpf (0-5); URINE COLOR LIGHT-YELLOW (YELLW/STRAW)
[2016-10-26 11:04] LABS: APTT (PATIENT) 23.7 SEC (24.3-30.1); PROTHROMBIN TIME - PATIENT 10.6 SEC (9.8-11.6)
[2016-10-26 11:29] LABS: ALKALINE PHOSPHATASE 80 U/L (45-117); ALT (GPT) 24 U/L (10-53); AST (GOT) 85 U/L (15-37); TOTAL BILIRUBIN ADULT 0.3 MG/DL (0.2-1.0)
[2016-10-26 12:07] LABS: ANION GAP 5 MEQ/L (5-15); BICARBONATE 26.9 MEQ/L (21.0-32.0); BLOOD UREA NITROGEN 8 MG/DL (7-18); CHLORIDE 108 MEQ/L (98-107); GLOMERULAR FILTRATION RATE 148 ML/MIN (>89); POTASSIUM 3.6 MEQ/L (3.5-5.1); SODIUM (NA) 140 MEQ/L (136-145)
[2016-10-26] MEDS ORDERED: PANT20 PO (12:21)
[2016-10-26] MEDS ORDERED: CARA1TAB6 PO (12:21)
[2016-10-26] MEDS ORDERED: NORC5TAB PO (12:21)
[2016-10-26] MEDS ORDERED: MORPHINE SULFATE 8 MG/ML INJ IV PUSH ONE (12:30)
[2016-10-26 13:00] VITALS: RESP 17
[2016-10-26 13:12] VITALS: BP 130/77; TEMP 97.8
== END 2016-10-26 13:14 | disposition home or self-care (01) ==
LOC: NEPC 08:42
DX: K29.70 Gastritis, unspecified, without bleeding (principal); R42 Dizziness and giddiness; K27.9 Peptic ulcer, site unspecified, unspecified as acute or chronic, without hemorrhage or perforation; D64.9 Anemia, unspecified; J45.909 Unspecified asthma, uncomplicated; K21.9 Gastro-esophageal reflux disease without esophagitis; I10 Essential (primary) hypertension; Z88.8 Allergy status to other drugs, medicaments and biological substances; Z79.899 Other long term (current) drug therapy
CPT/HCPCS: 80053; 81001; 83690; 85025; 85610; 85730; 96361; 96374; 96375; 99284; C9113; J2270; J2405; J7030

== ENCOUNTER 2016-11-10 09:38 | Observation (INO) | payer SELFPAY ==
[2016-11-10] VITALS (14 sets, daily range): BP systolic 124–217; BP diastolic 75–91; PULSE 55–81; RESP 18–21; TEMP 98.1–98.4; O2SAT 97–100
[~2016-11-10] VITALS: Ht 157.5 cm; Wt 82.0 kg
[~2016-11-10 09:38] MED LIST changes: +CARA1TAB6 PO; +NORC5TAB PO; +PANT20 PO; -PRED20 PO; -TRAM50TA PO
[2016-11-10] MEDS ORDERED: MORPHINE SULFATE 4 MG/ML INJ IV PUSH ONE (10:00)
[2016-11-10] MEDS ORDERED: SODIUM CHLORIDE 0.9% FLUSH 10 ML FLUSH IVF PRN (10:00)
[2016-11-10] MEDS ORDERED: ALUMINUM/MAGNESIUM/SIMETH 30 ML CUP PO ONE (10:00)
[2016-11-10] MEDS ORDERED: FAMOTIDINE 20 MG/2 ML VIAL IV PUSH ONE (10:00)
[2016-11-10] MEDS ORDERED: LIDOCAINE VISCOUS 2% SOLN 15 ML UDC PO ONE (10:00)
[2016-11-10] MEDS ORDERED: ASPIRIN 81 MG CHEW TAB PO ONE (10:00)
[2016-11-10 10:21] LABS: AUTOMATED NEUTROPHIL # 4.3 TH/MM3 (1.8-7.7); BASOPHIL # 0.1 TH/MM3 (0-0.2); BASOPHIL % 0.8 % (0.0-2.0); EOSINOPHIL # 0.2 TH/MM3 (0-0.4); EOSINOPHIL % 2.7 % (0.0-4.0); HEMATOCRIT 25.8 % (35.0-46.0); HEMO FLAGS DIFF FINAL; LYMPH % 29.5 % (9.0-44.0); LYMPHOCYTE # 2.3 TH/MM3 (1.0-4.8); MEAN CELL VOLUME 70.3 FL (80.0-100.0); MEAN CORPUSCULAR HEMOGLOBIN 22.1 PG (27.0-34.0); MEAN CORPUSCULAR HGB CONC 31.4 % (32.0-36.0); MONO % 12.1 % (0.0-8.0); NEUT % 54.9 % (16.0-70.0); PLATELET COUNT 456 TH/MM3 (150-450); RED BLOOD COUNT 3.68 MIL/MM3 (4.00-5.30); RED CELL DISTRIBUTION WIDTH 20.3 % (11.6-17.2); WHITE BLOOD COUNT 7.8 TH/MM3 (4.0-11.0)
[2016-11-10 10:39] LABS: ANION GAP 6 MEQ/L (5-15); BICARBONATE 27.6 MEQ/L (21.0-32.0); BLOOD UREA NITROGEN 6 MG/DL (7-18); CHLORIDE 106 MEQ/L (98-107); GLOMERULAR FILTRATION RATE 121 ML/MIN (>89); POTASSIUM 3.9 MEQ/L (3.5-5.1); SODIUM (NA) 140 MEQ/L (136-145)
--- NOTE | 2016-11-10 10:42 | RADRPT ---
EXAM DATE/TIME: 11/10/2016 09:55 [facility] COMPARISON: CHEST SINGLE AP, June 30, 2016, 13:56. INDICATIONS : Shortness of breath and chest pressure. MEDICAL HISTORY : None. SURGICAL HISTORY : None. ENCOUNTER: Initial ACUITY: 1 day PAIN SCORE: 0/10 LOCATION: Center chest FINDINGS: A single view of the chest demonstrates the lungs to be symmetrically aerated without evidence of mas s, infiltrate or effusion. The cardiomediastinal contours are unremarkable. Osseous structures are intact. CONCLUSION: 1. No acute cardiopulmonary disease. Bradley Hernandez MD on November 10, 2016 at 10:40 Board Certified Radiologist. This report was verified electronically.
[2016-11-10 10:58] LABS: CREATINE KINASE 74 U/L (26-192)
--- NOTE | 2016-11-10 12:07 | PD ---
HPI Chief Complaint: Chest Pain Time Seen by Provider: 09:49 Travel History International Travel<30 days: No Contact w/Intl Traveler<30days: No Traveled to known affect area: No History of Present Illness HPI Patient is a 51-year-old female comes in complaining of chest pain. She says the pain woke her up this morning. She says it feels like a pressure in her chest. She says she feels numbness going down her left arm. She denies shortness of breath or nausea or vomiting. She says the pain scared her. PFSH Past Medical History Hx Anticoagulant Therapy: No Anemia: Yes (WITH BLOOD TRANSFUSION) Asthma: Yes (CHILDHOOD) Blood Disorders: No Anxiety: No Depression: Yes Heart Rhythm Problems: No Cancer: No Cardiac Catheterization: No Cardiovascular Problems: No High Cholesterol: No Chemotherapy: No Chest Pain: No Congestive Heart Failure: No COPD: No Cerebrovascular Accident: No Diabetes: No Diminished Hearing: No Endocrine: No Gastrointestinal Disorders: Yes GERD: Yes Genitourinary: Yes Heparin Induced Thrombocytopen: No Hypertension: Yes Immune Disorder: No Implanted Vascular Access Dvce: No Kidney Stones: Yes Neurologic: Yes Psychiatric: Yes Respiratory: No Immunizations Current: Yes Migraines: Yes (CHILDHOOD) Radiation Therapy: No Sleep Apnea: No Thyroid Disease: No ?: Not : 2 Para: 2 Miscarriage: 0 : 0 Tubal Ligation: Yes Past Surgical History Abdominal Surgery: Yes (tubal ligation) Cardiac Surgery: No Cholecystectomy: Yes Coronary Artery Bypass Graft: No Ear Surgery: No Endocrine Surgery: No Eye Surgery: No Genitourinary Surgery: No Gynecologic Surgery: Yes Hysterectomy: No Neurologic Surgery: No Oral Surgery: No Thoracic Surgery: No Other Surgery: Yes (tubal and gallstones in the 1980s) Family History Family Myocardial Infarction: Yes (GM/COUSIN/AUNTS/UNCLE) Social History Alcohol Use: No Tobacco Use: No (QUIT 2 WEEKS AGO) Substance Use: No (pt denies ) Allergies-Medications (Allergen,Severity, Reaction): Coded Allergies: Lisinopril (Verified Allergy, Severe, SWELLING, 10/26/16) Reported Meds & Prescriptions Reported Meds & Active Scripts Active Carafate (Sucralfate) 1 Gm Tab 1 Gm PO QID On empty stomach Protonix (Pantoprazole Sodium) 20 Mg Tab 20 Mg PO DAILY [place] (Hydrocodone-Acetaminophen) 5-325 mg Tab 1 Tab PO Q6H PRN Reported Multiple Vitamin 1 Tab 1 Tab PO DAILY Review of Systems Except as stated in HPI: all other systems reviewed are Neg General / Constitutional: No: Fever, Chills HENT: No: Headaches, Lightheadedness Cardiovascular: Positive: Chest Pain or Discomfort Respiratory: No: Shortness of Breath Gastrointestinal: No: Nausea, Vomiting Genitourinary: No: Dysuria Musculoskeletal: No: Pain Skin: No Rash, No Change in Pigmentation Neurologic: No: Weakness, Dizziness Physical Exam Narrative GENERAL: Awake and alert, in no acute distress. SKIN: Focused skin assessment warm/dry. HEAD: Atraumatic. Normocephalic. EYES: Pupils equal and round. No scleral icterus. No injection or drainage. ENT: Mucous membranes pink and moist. NECK: Trachea midline. No JVD. CARDIOVASCULAR: Regular rate and rhythm. No murmur appreciated. RESPIRATORY: No accessory muscle use. Clear to auscultation. Breath sounds equal bilaterally. GASTROINTESTINAL: Abdomen soft, non-tender, nondistended. MUSCULOSKELETAL: No obvious deformities. No clubbing. No cyanosis. No edema. NEUROLOGICAL: Awake and alert. No obvious cranial nerve deficits. Motor grossly within normal limits. Normal speech. PSYCHIATRIC: Appropriate mood and affect; insight and judgment normal. Data Data Last Documented VS Vital Signs Date Time Temp Pulse Resp B/P Pulse Ox O2 Delivery O2 Flow Rate FiO2 11/10/16 10:24 100 Room Air 11/10/16 09:47 98.3 81 18 211/91 Orders Electrocardiogram (11/10/16 09:49) Basic Metabolic Panel (Bmp) (11/10/16 09:49) Ckmb (Isoenzyme) Profile (11/10/16 09:49) Complete Blood Count With Diff (11/10/16 09:49) Prothrombin Time / Inr (Pt) (11/10/16 09:49) Act Partial Throm Time (Ptt) (11/10/16 09:49) Troponin I (11/10/16 09:49) Lipase (11/10/16 09:49) Chest, Single Ap (11/10/16 09:49) Ecg Monitoring (11/10/16 09:49) Bilateral Bp Monitoring (11/10/16 09:49) Iv Access Insert/Monitor (11/10/16 09:49) Oximetry (11/10/16 09:49) Oxygen Administration (11/10/16 09:49) Aspirin Chew (Aspirin Chew) (11/10/16 10:00) Morphine Inj (Morphine Inj) (11/10/16 10:00) Sodium Chloride 0.9% Flush (Ns Flush) (11/10/16 10:00) Famotidine Inj (Pepcid Inj) (11/10/16 10:00) Al-Mag Hy-Si 40-40-4 Mg/Ml Liq (Mag-Al P (11/10/16 10:00) Lidocaine 2% Viscous (Xylocaine 2% Visco (11/10/16 10:00) Vascular Access Team Consult/P PRN (11/10/16 10:48) Vascular Poc Ultrasound (11/10/16 ) Admit Order (Ed Use Only) (11/10/16 ) Labs Laboratory Tests Test 11/10/16 10:11 White Blood Count 7.8 TH/MM3 Red Blood Count 3.68 MIL/MM3 Hemoglobin 8.1 GM/DL Hematocrit 25.8 % Mean Corpuscular Volume 70.3 FL Mean Corpuscular Hemoglobin 22.1 PG Mean Corpuscular Hemoglobin 31.4 % Concent Red Cell Distribution Width 20.3 % Platelet Count 456 TH/MM3 Mean Platelet Volume 6.8 FL Neutrophils (%) (Auto) 54.9 % Lymphocytes (%) (Auto) 29.5 % Monocytes (%) (Auto) 12.1 % Eosinophils (%) (Auto) 2.7 % Basophils (%) (Auto) 0.8 % Neutrophils # (Auto) 4.3 TH/MM3 Lymphocytes # (Auto) 2.3 TH/MM3 Monocytes # (Auto) 0.9 TH/MM3 Eosinophils # (Auto) 0.2 TH/MM3 Basophils # (Auto) 0.1 TH/MM3 CBC Comment DIFF FINAL Differential Comment Prothrombin Time 10.8 SEC Prothromb Time International 1.0 RATIO Ratio Activated Partial 23.9 SEC Thromboplast Time Sodium Level 140 MEQ/L Potassium Level 3.9 MEQ/L Chloride Level 106 MEQ/L Carbon Dioxide Level 27.6 MEQ/L Anion Gap 6 MEQ/L Blood Urea Nitrogen 6 MG/DL Creatinine 0.63 MG/DL Estimat Glomerular Filtration 121 ML/MIN Rate Random Glucose 100 MG/DL Calcium Level 8.8 MG/DL Total Creatine Kinase 74 U/L Troponin I LESS THAN 0.02 NG/ML Lipase 106 U/L MDM Medical Decision Making Medical Screen Exam Complete: Yes Emergency Medical Condition: Yes Medical Record Reviewed: Yes Interpretation(s) ECG shows NSR, no ST elevation or depression Differential Diagnosis ACS vs NSTEMI vs STEMI Narrative Course Patient is a 51 year old female who comes in complaining of chest pain. Exam shows no acute abnormalities. IV established, labs sent. Patient connected to the surveillance system monitor. Labs show no acute abnormalities. Given Aspirin and morphine. Patient placed in chest pain center. Diagnosis Primary Impression: Chest pain Qualified Code: R07.9 - Chest pain, unspecified type Admitting Information Admitting Physician Requests: Observation Condition: Stable Isela Mo MD Nov 10, 2016 12:07
[2016-11-10 12:37] LABS: PROTHROMBIN TIME - PATIENT 10.8 SEC (9.8-11.6)
[2016-11-10 12:41] LABS: APTT (PATIENT) 23.9 SEC (24.3-30.1)
[2016-11-10] MEDS ORDERED: SODIUM CHLORIDE 0.9% FLUSH 5 ML FLUSH IVF PRN (13:15)
[2016-11-10] MEDS ORDERED: ACETAMINOPHEN 500 MG CPLT PO PRN (13:15)
[2016-11-10] MEDS ORDERED: ACETAMINOPHEN/HYDROcodone 325 MG/7.5 MG TAB PO PRN (13:15)
[2016-11-10] MEDS ORDERED: ONDANSETRON HCL 4 MG/2 ML VIAL IV PRN (13:15)
[2016-11-10] MEDS ORDERED: METOPROLOL TARTRATE 25 MG TAB PO ONE (13:30)
[2016-11-10] MEDS ORDERED: amLODIPine BESYLATE 5 MG TAB PO ONE (13:30)
--- NOTE | 2016-11-10 14:32 | HHI.HP ---
HPI Primary Care Physician No Primary Care Physician Chief Complaint Chest pain History of Present Illness This is a 51-year-old female that presents to the ED with a complaint of a chest discomfort. She points a substernal/epigastric region. States has been there since yesterday. Began after she got home from work. Describes as a heaviness. She states she fell asleep with the discomfort about 2 hours but when she woke back up this morning it was still present prompting her to come to the ED. She states that she drinking warm Pepsi and took a Gas-X tablet which did help briefly. She also states that GI cocktail that she was given in the ED also helped briefly. She was nauseous and states that she had an episode of emesis after drinking warm Pepsi and taking the Gas-X. Patient has history of gastritis although she cannot recall ever having endoscopy. But does not take any medication for it on a regular basis stating she has no money. Patient also has history of anemia and states her last transfusion was about a year ago. She's had 4 transfusions in the past. Denies hematemesis. Denies blood in stool. Also has history of hypertension was states she has had no medication for 6 months also citing lack of funding. Cannot recall prior stress testing. Review of Systems General: Patient denies fevers, chills recent, and recent travel HEENT: Patient denies headache, sore throat, difficulty swallowing. Cardiovascular: Has the chest discomfort as mentioned above. Denies sensation of heart beating rapidly or irregularly. No syncope. Denies diaphoresis. Respiratory: Denies shortness of breath or inspirational chest discomfort. Denies coughing wheezing or hemoptysis. GI: Had an episode of nausea with emesis after drinking a warm Pepsi and taking a Gas-X tablet. Denies hematemesis. Patient denies diarrhea, abdominal pain, bloody stools. Musculoskeletal: Patient denies joint pain or edema. Denies calf pain or edema. Neurovascular: Patient denies numbness, tingling, weakness in extremities. Denies headache. Endocrine: Denies polyuria and polydipsia. Hematologic: Denies easy bruising. Skin: Denies rash or itching. Past Family Social History Allergies: Coded Allergies: Lisinopril (Verified Allergy, Severe, SWELLING, 10/26/16) Past Medical History Hypertension hour noncompliant with medication. Gastritis however also noncompliant with medication. Anemia with prior transfusions most recently being about a year ago. Denies hyperlipidemia diabetes and known CAD. Past Surgical History Tubal ligation and cholecystectomy. Denies ever having an endoscopy or colonoscopy. Reported Medications Reported Meds & Active Scripts Active Carafate (Sucralfate) 1 Gm Tab 1 Gm PO QID On empty stomach Protonix (Pantoprazole Sodium) 20 Mg Tab 20 Mg PO DAILY [place] (Hydrocodone-Acetaminophen) 5-325 mg Tab 1 Tab PO Q6H PRN Reported Multiple Vitamin 1 Tab 1 Tab PO DAILY Active Ordered Medications Current Medications Medications (Trade) Dose Ordered Sig/Breanna Route Start Time Stop Time Status Last Admin (NS Flush) 2 ml UNSCH PRN IVF 11/10/16 13:15 (NS Flush) 2 ml BID IVF 11/10/16 21:00 (Tylenol) 500 mg Q4H PRN PO 11/10/16 13:15 ([place] 7.5-325 Mg) 1 tab Q4H PRN PO 11/10/16 13:15 (Zofran Inj) 4 mg Q6H PRN IV 11/10/16 13:15 Family History States that he brother at age 54 of a myocardial infarction. Her father at age 69 of a myocardial infarction. Social History Patient quit smoking cigarettes 2 weeks ago but prior that she smoked between 1.5 to 2 packs of cigarettes daily for 35 years. Denies alcohol or illicit drugs. Physical Exam Vital Signs Vital Signs Date Time Temp Pulse Resp B/P Pulse Ox O2 Delivery O2 Flow Rate FiO2 11/10/16 13:55 65 18 171/81 100 Room Air 11/10/16 13:15 74 18 217/84 100 Room Air 11/10/16 12:22 76 18 184/84 100 Room Air 11/10/16 10:24 100 Room Air 11/10/16 10:24 100 Room Air 11/10/16 09:47 98.3 81 18 211/91 100 Room Air 11/10/16 09:44 82 20 Room Air 11/10/16 09:42 98.3 Physical Exam GENERAL: This is a well-nourished, well-developed patient, in no apparent distress. Patient speaks in clear complete sentences. Patient is pleasant. HEENT: Head is atraumatic and normocephalic. Neck is supple without lymphadenopathy and trachea is midline. No JVD or carotid bruits. CARDIOVASCULAR: Regular rate and rhythm without murmurs, gallops, or rubs. RESPIRATORY: Clear to auscultation. Breath sounds equal bilaterally. No wheezes , rales, or rhonchi. Chest wall is nontender. No use of accessory muscles. GASTROINTESTINAL: There is some epigastric discomfort. Abdomen is nondistended. Abdomen soft. No obvious pulsatile mass or bruit. No CVA tenderness. Strong femoral pulses bilaterally. Normal bowel sounds in all quadrants. MUSCULOSKELETAL: Patient is moving upper and lower extremities freely. No calf tenderness or edema, no Homans sign. Strong pulses in upper and lower extremities. NEUROLOGICAL: Patient is alert and oriented. Cranial nerves 2-12 are grossly intact. No focal deficits and speech is clear. SKIN: No rash and turgor is normal. Laboratory Laboratory Tests Test 11/10/16 10:11 White Blood Count 7.8 Red Blood Count 3.68 Hemoglobin 8.1 Hematocrit 25.8 Mean Corpuscular Volume 70.3 Mean Corpuscular Hemoglobin 22.1 Mean Corpuscular Hemoglobin 31.4 Concent Red Cell Distribution Width 20.3 Platelet Count 456 Mean Platelet Volume 6.8 Neutrophils (%) (Auto) 54.9 Lymphocytes (%) (Auto) 29.5 Monocytes (%) (Auto) 12.1 Eosinophils (%) (Auto) 2.7 Basophils (%) (Auto) 0.8 Neutrophils # (Auto) 4.3 Lymphocytes # (Auto) 2.3 Monocytes # (Auto) 0.9 Eosinophils # (Auto) 0.2 Basophils # (Auto) 0.1 CBC Comment DIFF FINAL Differential Comment Prothrombin Time 10.8 Prothromb Time International 1.0 Ratio Activated Partial 23.9 Thromboplast Time Sodium Level 140 Potassium Level 3.9 Chloride Level 106 Carbon Dioxide Level 27.6 Anion Gap 6 Blood Urea Nitrogen 6 Creatinine 0.63 Estimat Glomerular Filtration 121 Rate Random Glucose 100 Calcium Level 8.8 Total Creatine Kinase 74 Troponin I LESS THAN 0.02 Lipase 106 Result Diagram: 11/10/16 1011 11/10/16 1011 Imaging Last 48 hours Impressions Chest X-Ray 11/10/16 0968 Signed Impressions: Service Date/Time: November 09:55 - CONCLUSION: 1. No acute cardiopulmonary disease. Bradley Hernandez MD Course Initial EKG is sinus rhythm without significant ST segment depressions or elevations. Assessment and Plan Assessment and Plan * Chest pain: Patient has had normal troponin at having discomfort for hours. She'll be seen by Dr. Bishop of cardiology in the chest pain center and will have a CTA of the coronaries. Discharge be pending the results of the CTA of the coronaries. * Hypertension: Patient has been noncompliant. She cannot recall the medication at she was taking. Will start amlodipine. * Anemia: Upon review records her hemoglobin has been in the 8 region for some time. It is 8.1 today. Denies hematemesis or blood in stool. We will get the patient a blue card so she can follow-up on an outpatient basis. Patient is stable at this time. She is agreeable to this plan. Joel Villarreal Nov 10, 2016 14:32
--- NOTE | 2016-11-10 14:50 | EKG ---
Date Performed: 11/10/2016 Time Performed: 09:56:31 PTAGE: 51 years EKG: Sinus rhythm MINIMAL VOLTAGE CRITERIA FOR LVH, CONSIDER NORMAL VARIANT BORDERLINE ECG PREVIOUS TRACING : 06/30/2016 13.11 Since previous tracing, no significant change noted DOCTOR: Sonia Bishop Interpretating Date/Time 11/10/2016 14:48:47
[2016-11-10] MEDS ORDERED: NITROGLYCERIN 0.4 MG SL 25 TABS/BTL SL ONE (16:37)
[2016-11-10] MEDS ORDERED: IOHEXOL 350 MG/ML 10 ML VIAL (for RAD DIAG) IV ONE (16:42)
--- NOTE | 2016-11-10 17:20 | HHI.DCPOC ---
Discharge Care Plan Diagnosis: (1) Chest pain (2) HTN (hypertension) Goals to Promote Your Health * To prevent worsening of your condition and complications * To maintain your health at the optimal level Directions to Meet Your Goals Take your medications as prescribed Follow your dietary instruction Follow activity as directed Keep your appointments as scheduled Take your immunizations and boosters as scheduled If your symptoms worsen call your PCP, if no PCP go to Urgent Care Center or Emergency Room Smoking is Dangerous to Your Health. Avoid second hand smoke Call the 24-hour hour crisis hotline for domestic abuse at Joel Villarreal Nov 10, 2016 17:20
--- NOTE | 2016-11-10 20:39 | RADRPT ---
EXAM DATE/TIME: 11/10/2016 16:24 [facility] COMPARISON: No previous studies available for comparison. INDICATIONS : Chest pain. IV CONTRAST: 90 cc Omnipaque 350 (iohexol) IV RADIATION DOSE: 5.43 CTDIvol (mGy) MEDICAL HISTORY : Hypertension. Renal calculi. SURGICAL HISTORY : Cholecystectomy. Tubal ligation. ENCOUNTER: Initial ACUITY: 1 week PAIN SCALE: 4/10 LOCATION: Bilateral upper chest TECHNIQUE: Volumetric scanning was obtained through the heart. Images were acquired on a multislice multiple ro w detector helical scanner timed for acquisition during peak arterial contrast. Images were reconstr ucted using a retrospective gating algorithm including single sector and multi-sector algorithms at m ultiple phases of the cardiac cycle. Images were interpreted using a combination of 2D and 3D visual ization modes including curved planar reformation, thin slab maximum intensity projection and volume rendering. Using automated exposure control and adjustment of the mA and/or kV according to patient size, radiation dose was kept as low as reasonably achievable to obtain optimal diagnostic quality im ages. DICOM format image data is available electronically for review and comparison. FINDINGS: VESSEL ANALYSIS: DOMINANCE: The coronary system is right dominant. LEFT MAIN: Normal vessel without calcification or stenosis. LAD: Normal vessel without calcification or stenosis. CIRCUMFLEX: Normal vessel without calcification or stenosis. RCA: Normal vessel without calcification or stenosis. OTHER: Coronary artery calcium score is 29 which is at the 80th percentile. CONCLUSION: No coronary artery stenosis seen. Norm Rivera MD on November 10, 2016 at 20:34 Board Certified Radiologist. This report was verified electronically.
[2016-11-10] MEDS ORDERED: SODIUM CHLORIDE 0.9% FLUSH 5 ML FLUSH IVF SCH (21:00)
== END 2016-11-10 22:47 | disposition home or self-care (01) ==
LOC: NEPE 09:38 → NEDA 12:08 → NEPFCDU 14:44
PROVIDERS: ADMIT Internal Medicine Interventional Cardiology; ATTEND Internal Medicine Interventional Cardiology
DX: R07.89 Other chest pain (principal); I10 Essential (primary) hypertension; J45.909 Unspecified asthma, uncomplicated; D64.9 Anemia, unspecified; F32.9 Major depressive disorder, single episode, unspecified; K21.9 Gastro-esophageal reflux disease without esophagitis; Z87.891 Personal history of nicotine dependence; Z91.14 Patient's other noncompliance with medication regimen
CPT/HCPCS: 71010; 75574; 76937; 80048; 82550; 83690; 84484; 85025; 85610; 85730; 93005; 96374; 96375; 99285; G0378; J2270; Q9967